=== PATIENT | female | born 2000 | race Caucasian/White ===

== ENCOUNTER 2020-10-20 08:00 | Inpatient (IN) ==
[2020-10-20] MEDS ORDERED: Azithromycin 500 MG in 0.9 % Sodium Chloride 250 ML IVPB ONE (08:14)
[2020-10-20] MEDS ORDERED: Famotidine 20 MG/2 ML VIAL IVP PRN (08:14)
[2020-10-20] MEDS ORDERED: Naloxone 0.4 MG/ML INJ IVP PRN (08:14)
[2020-10-20] MEDS ORDERED: Ondansetron 4 MG/2 ML VIAL IVP PRN (08:14)
[2020-10-20] MEDS ORDERED: Metoclopramide 10 MG/2 ML VIAL IVP PRN (08:14)
[2020-10-20 09:05] LABS: Basophils # 0.1 K/mcL (0.0-0.2); Basophils % 0.4 %; Eosinophils # 0.1 K/mcL (0.0-0.6); Eosinophils % 0.6 %; Hematocrit 35.4 % (35.3-44.9); Hemoglobin 11.8 g/dL (11.5-15.4); Immature Granulocytes % 0.6 % (0-4); Lymphocytes # 1.9 K/mcL (0.6-4.6); Lymphocytes % 16.9 %; Mean Corpuscular HGB Conc 33.3 g/dL (31.6-35.5); Mean Corpuscular Hemoglobin 29.3 pg (28.0-33.3); Mean Corpuscular Volume 87.8 fL (83.0-100.0); Mean Platelet Volume 10.9 fL (9.4-12.4); Monocytes # 0.4 K/mcL (0.0-1.3); Monocytes % 3.9 %; Neutrophils # 8.6 K/mcL (1.6-8.9); Platelet Count 203 K/mcL (140-400); Red Blood Count 4.03 M/mcL (3.82-4.97); Red Cell Distribution Width 13.5 % (11.5-14.5); Segmented Neutrophils % 77.6 %; White Blood Count 11.1 K/mcL (4.3-11.1)
[2020-10-20] MEDS ORDERED: miSOPROStoL 25 MCG TABLET PO SCH (10:00)
[2020-10-20] MEDS ORDERED: *HR* FentaNYL (PF) 100 MCG/2 ML VIAL ONE ×2 (10:26→13:23)
[2020-10-20] MEDS ORDERED: Bupivacaine-MPF 0.25% 10 ML VIAL ONE ×2 (10:26→13:23)
[2020-10-20] MEDS ORDERED: Oxytocin 20 units/ LR 1000 mL 20 UNIT/1,000 ML BAG IVC SCH (14:30)
[2020-10-20] MEDS: Ringers Solution, Lactated 1,000 ML IVC SCH ×2 (14:46→17:02)
[2020-10-20 15:27] LABS: Amphetamine Screen,Urine Negative ng/mL (Cutoff=1000); Barbiturate Screen,Urine Negative ng/mL (Cutoff=200); Benzodiazepines Screen,Urine Negative ng/mL (Cutoff=200); Cannabinoid Screen,Urine Negative ng/mL (Cutoff = 50); Cocaine Screen,Urine Negative ng/mL (Cutoff= 300); Opiate Screen,Urine Negative ng/mL (Cutoff=300); Phencyclidine Screen,Urine Negative ng/mL (Cutoff=25)
[2020-10-20] MEDS ORDERED: Epidural Premix (fent/bupiv) 110 ML EP ONE (16:45)
[2020-10-20] MEDS ORDERED: Lidocaine 1% 20 ML MDV ONE (22:45)
[2020-10-21] MEDS ORDERED: Benzocaine/Menthol 56 GM AEROSOL SPRAY TP PRN (00:31)
[2020-10-21] MEDS ORDERED: Oxytocin 20 units/ LR 1000 mL 20 UNIT/1,000 ML BAG IVC SCH (00:31)
[2020-10-21] MEDS ORDERED: Acetaminophen 325 MG TABLET PO PRN (00:31)
[2020-10-21] MEDS ORDERED: Lanolin 7 G OINT...G. TP PRN (00:31)
[2020-10-21] MEDS: Prenatal Vit/FA 1 EACH TABLET PO SCH (09:00)
[2020-10-21] MEDS: Ibuprofen 600 MG TABLET PO PRN (14:38)
[2020-10-22] MEDS: Ibuprofen 600 MG TABLET PO PRN (07:01)
[2020-10-22 08:21] VITALS: BP 117/77
[2020-10-22] MEDS: Prenatal Vit/FA 1 EACH TABLET PO SCH (08:31)
== END 2020-10-22 11:44 | disposition home or self-care (01) | DRG 560 ==
LOC: 1NENULAB 08:04 → 1NENUOBS 10-21 01:44
PROVIDERS: ADMIT Student in an Organized Health Care Education/Training Program; ATTEND Student in an Organized Health Care Education/Training Program